=== PATIENT | male | born 1950 | race Caucasian/White ===

== ENCOUNTER 2024-10-28 17:07 | Emergency (ER) | payer MEDICARE, OTHER ==
[~2024-10-28] VITALS: Ht 180.3 cm; Wt 117.9 kg
[2024-10-28] MEDS ORDERED: KETOROLAC TROMETHAMINE 15 MG/ML VIAL IV ONE (18:00)
[2024-10-28] MEDS ORDERED: MORPHINE SULFATE INJ 2 MG/ML DISP.SYRIN ONE (18:02)
[2024-10-28] MEDS: MORPHINE SULFATE INJ 2 MG/ML DISP.SYRIN IV ONE (18:06)
[2024-10-28 18:16] LABS: BASOPHILS # (AUTO) 0.1 K/uL (0.0-0.2); BASOPHILS % (AUTO) 1.2 % (0.0-2.0); EOSINOPHILS % (AUTO) 0.4 % (0.0-6.0); HEMATOCRIT 37 % (39-51); HEMOGLOBIN 12.4 g/dL (13.5-17.5); LYMPHOCYTES # (AUTO) 0.8 K/uL (0.8-4.8); LYMPHOCYTES % (AUTO) 7.5 % (20.0-44.0); MEAN CORPUSCULAR HEMOGLOBIN 30 PG (26.0-33.0); MEAN CORPUSCULAR HGB CONC 34 g/dl (31.0-36.0); MEAN CORPUSCULAR VOLUME 90 fL (80-96); MONOCYTES # (AUTO) 0.7 K/uL (0.1-1.30); MONOCYTES % (AUTO) 7.2 % (2.0-12.0); NEUTROPHILS # (AUTO) 8.4 K/uL (1.8-8.9); NEUTROPHILS % (AUTO) 83.7 % (43.0-81.0); PLATELET COUNT (AUTO) 223 K/uL (150-450); RED CELL DISTRIBUTION WIDTH 15.7 % (11.5-15.0); WHITE BLOOD COUNT (AUTO) 10.1 K/uL (4.3-11.0)
[2024-10-28 18:27] LABS: CREATININE 1.8 mg/dL (0.6-1.3); POTASSIUM 3.4 mmol/L (3.5-5.1)
[2024-10-28 18:32] LABS: C-REACTIVE PROTEIN 6.82 mg/dL (0.0-0.30); URIC ACID 9.5 mg/dL (2.6-7.2)
[2024-10-28 18:55] LABS: ERYTHROCYTE SEDIMENTATION RATE 15 MM/HR (0-20)
[2024-10-28] MEDS: COLCHICINE 0.6 MG TABLET PO ONE ×2 (19:38→21:16)
[2024-10-28] MEDS ORDERED: COLCHICINE 0.6 MG TABLET ONE ×2 (21:15→21:34)
[2024-10-28] MEDS ORDERED: OXYC-128 PO (21:18)
[2024-10-28] MEDS ORDERED: oxyCODONE/APAP (5/325 MG) 1 UDTAB TABLET ONE (21:46)
[2024-10-28] MEDS: oxyCODONE/APAP (5/325 MG) 1 UDTAB TABLET PO ONE (21:47)
[2024-10-28 21:52] VITALS: BP 132/66; TEMP 98.5; O2SAT 97
== END 2024-10-28 21:52 | disposition home or self-care (01) ==
LOC: ER 17:18
DX: M10.9 Gout, unspecified (principal); M25.532 Pain in left wrist; I12.9 Hypertensive chronic kidney disease with stage 1 through stage 4 chronic kidney disease, or unspecified chronic kidney disease; N40.0 Benign prostatic hyperplasia without lower urinary tract symptoms; N18.9 Chronic kidney disease, unspecified
CPT/HCPCS: 99284; 96374; 73110; 85025; 80048; 85652; 84550; 36415; 86140; J2270